=== PATIENT | male | born 1975 | race Caucasian/White ===

== ENCOUNTER 2023-04-07 20:32 | Emergency (ER) | payer OTHER ==
[~2023-04-07] VITALS: Ht 167.6 cm; Wt 93.9 kg
[2023-04-07 20:40] VITALS: BP 145/85; PULSE 86; RESP 18; TEMP 97.8; O2SAT 98
[2023-04-07] MEDS ORDERED: ALBUTEROL 0.083% 2.5 MG/3 ML NEBU INH ONE (21:55)
[2023-04-07 22:06] VITALS: PULSE 86; RESP 18; O2SAT 98
[2023-04-07] MEDS ORDERED: PROM118S5 PO (22:42)
[2023-04-07] MEDS ORDERED: ALBU0.0912 IH (22:42)
[2023-04-07] MEDS ORDERED: METH4TAB1 PO (22:42)
[2023-04-07 23:01] VITALS: BP 128/87; PULSE 74; RESP 16; TEMP 97.8; O2SAT 98
== END 2023-04-07 22:01 | disposition home or self-care (01) ==
LOC: MED 20:32
DX: J20.9 Acute bronchitis, unspecified (principal); R03.0 Elevated blood-pressure reading, without diagnosis of hypertension; Z79.899 Other long term (current) drug therapy
CPT/HCPCS: 71045; 94640; 99283; J7613; Q0092